=== PATIENT | female | born 1975 | race Asian ===

== ENCOUNTER 2021-09-02 11:59 | Emergency (ER) | payer BC, OTHER ==
[~2021-09-02] VITALS: Ht 162.6 cm; Wt 61.2 kg
--- NOTE | 2021-09-02 12:47 | NUR ---
Dr Carrillo at the bedside for MSE.
[2021-09-02] MEDS ORDERED: VALA100026 PO (13:00)
[2021-09-02] MEDS ORDERED: HYDR-4209 PO (13:00)
[2021-09-02 13:09] VITALS: BP 135/89
--- NOTE | 2021-09-02 13:09 | NUR ---
Patient discharged to home in stable condition. Written and verbal after care instructions given. Patient verbalizes understanding of instructions. Stressed follow up or return to ER for worsening s/s.
== END 2021-09-02 13:10 | disposition home or self-care (01) ==
LOC: ER 12:09
DX: B02.9 Zoster without complications (principal); R03.0 Elevated blood-pressure reading, without diagnosis of hypertension
CPT/HCPCS: A4663

== ENCOUNTER 2023-01-20 07:39 | Outpatient (CLI) | payer BC, OTHER ==
[~2023-01-20 07:39] MED LIST: HYDR-4209 PO
== END 2023-01-20 23:59 | disposition home or self-care (01) ==
LOC: LAB 07:39
PROVIDERS: ATTEND Internal Medicine Gastroenterology
DX: Z01.812 Encounter for preprocedural laboratory examination (principal); Z20.822 Contact with and (suspected) exposure to COVID-19

== ENCOUNTER 2023-01-21 06:29 | Day surgery (SDC) | payer BC, OTHER ==
[2023-01-21 07:02] LABS: HEMATOCRIT 39.8 % (31.2-41.9); MEAN CORPUSCULAR HEMOGLOBIN 31.2 uug (24.7-32.8); MEAN CORPUSCULAR VOLUME 94.2 fL (75.5-95.3); PLATELET COUNT (AUTO) 261 K/uL (179-408)
[2023-01-21 07:24] LABS: CREATININE 0.8 mg/dL (0.6-1.3); POTASSIUM 3.8 mmol/L (3.5-5.1)
[2023-01-21 07:25] LABS: *URINE HCG, QUAL NEG (NEGATIVE)
[2023-01-21 07:27] LABS: *BILIRUBIN,URIN 1+ (NEGATIVE); *CLARITY,URINE CLEAR (CLEAR); *COLOR,URINE YELLOW (YELLOW); *KETONES,URINE TRACE (NEGATIVE); *UROBILINOGEN,URINE 0.2 E.U./dl (NORMAL); LEUKOCYTE ESTERASE ,URINE NEGATIVE (NEGATIVE); NITRITE, URINE NEGATIVE (NEGATIVE); UGLUCOSE NEGATIVE (NEGATIVE)
[2023-01-21 07:28] LABS: *BLOOD, URINE TRACE (NEGATIVE)
[2023-01-21 07:29] LABS: BILIRUBIN,TOTAL 0.8 mg/dL (0.2-1.0); TOTAL PROTEIN, SERUM 8.5 g/dL (6.4-8.2)
[2023-01-21 17:12] LABS: BACTERIA,URINE MANY /HPF (NONE SEEN); RBC,URINE 0-3 /HPF (0-3); SQUAMOUS EPITHELIAL CELL,UR MODERATE /HPF (NONE SEEN); WBC,URINE NONE SEEN /HPF (0-3)
== END 2023-01-21 10:00 | disposition home or self-care (01) ==
LOC: DS 06:29
PROVIDERS: ATTEND Internal Medicine Gastroenterology
DX: Z01.812 Encounter for preprocedural laboratory examination (principal); Z12.11 Encounter for screening for malignant neoplasm of colon; K64.8 Other hemorrhoids; K63.89 Other specified diseases of intestine; Z79.899 Other long term (current) drug therapy; Z79.01 Long term (current) use of anticoagulants; Z98.890 Other specified postprocedural states
CPT/HCPCS: 45378; 80053; 36415; 85025; 84703; 85730; 81001; J7120; A4663